=== PATIENT | female | born 1960 | race Caucasian/White ===

== ENCOUNTER 2017-08-25 12:36 | Emergency (ER) | payer MEDICAID ==
[~2017-08-25] VITALS: Ht 172.7 cm; Wt 103.9 kg
[~2017-08-25 12:36] MED LIST: ALBU6.7H INH; DIPH25CA6 PO; HYDR-569 PO; INHA1EAC68 MC; PRED20TA PO
[2017-08-25 13:04] LABS: BASOPHILS % (AUTO) 0 % (0-1); EOSINOPHILS # (AUTO) 0.2 X10'3 (0-0.9); EOSINOPHILS % (AUTO) 1.9 % (0-6); HEMATOCRIT 43.5 % (35.0-45.0); HEMOGLOBIN 14.7 g/dl (12.0-16.0); LYMPHOCYTES # (AUTO) 0.4 X10'3 (1.1-4.8); LYMPHOCYTES % (AUTO) 4.9 % (21-51); MEAN CORPUSCULAR HEMOGLOBIN 30.4 PG (27.0-31.0); MEAN CORPUSCULAR HGB CONC 33.9 % (33.0-36.5); MEAN CORPUSCULAR VOLUME 89.7 FL (78-98); MEAN PLATELET VOLUME 8.4 FL (7.4-10.4); MONOCYTES # (AUTO) 0.2 X10'3 (0-0.9); MONOCYTES % (AUTO) 2.3 % (2-12); NEUTROPHILS # (AUTO) 7.8 X10'3 (1.8-7.7); NEUTROPHILS % (AUTO) 90.9 % (42-75); PLATELET COUNT 239 X10'3 (140-440); RED BLOOD COUNT 4.85 X10'6 (4.20-5.60); RED CELL DISTRIBUTION WIDTH 12.8 % (11.5-14.5); WHITE BLOOD COUNT 8.6 X10'3 (4.5-11.0)
[2017-08-25 13:17] LABS: INR 0.9 INR; PARTIAL THROMBOPLASTIN TIME 25 SECONDS (22-32); PROTHROMBIN TIME 9.6 SECONDS (9.0-12.0)
[2017-08-25 13:19] LABS: ALANINE AMINOTRANSFERASE 46 U/L (12-78); ALBUMIN 3.9 G/DL (3.4-5.0); ALKALINE PHOSPHATASE 79 IU/L (46-116); ANION GAP 12 (8-16); ASPARTATE AMINO TRANSFERASE 23 U/L (10-37); BILIRUBIN,TOTAL 1.2 MG/DL (0.1-1.0); BLOOD UREA NITROGEN 10 MG/DL (7-18); BUN/CREATININE RATIO 10.6 (6.6-38.0); CALCIUM 9.3 MG/DL (8.5-10.1); CHLORIDE 102 MMOL/L (99-107); CREATININE 0.94 MG/DL (0.40-0.90); GLUCOSE 134 MG/DL (70-104); POTASSIUM 4.4 MMOL/L (3.5-5.1); SODIUM 139 MMOL/L (135-145); TOTAL CARBON DIOXIDE 24.8 MMOL/L (24-32); TOTAL PROTEIN 7.8 G/DL (6.4-8.2); eGFR 61 ML/MIN
[2017-08-25] MEDS ORDERED: albuterol 2.5 MG/3 ML nebule CONTNEB PRN (15:25)
[2017-08-25] MEDS ORDERED: methylPREDNISolone sod succ 125mg/2ml vial IV ONE (15:25)
[2017-08-25] MEDS ORDERED: PRED20TA PO (16:31)
[2017-08-25] MEDS ORDERED: AZIT250T PO (16:32)
[2017-08-25 17:22] VITALS: BP 124/71
== END 2017-08-25 17:24 | disposition home or self-care (01) ==
LOC: ER 12:37
DX: J44.1 Chronic obstructive pulmonary disease with (acute) exacerbation (principal); Z87.891 Personal history of nicotine dependence; Z91.013 Allergy to seafood; Z79.82 Long term (current) use of aspirin
CPT/HCPCS: 36415; 71010; 80053; 84484; 85025; 85610; 85730; 93005; 94644; 94760; 96374; 99285; J2930

== ENCOUNTER 2025-05-24 08:36 | Outpatient (CLI) | payer BC, MEDICARE ==
[~2025-05-24] VITALS: Ht 165.1 cm; Wt 107.5 kg
[~2025-05-24 08:36] MED LIST changes: -ALBU6.7H INH; +ALBU6.7H14 INH; +AZIT250T PO; +DIPH25CA52 PO; -DIPH25CA6 PO; +HYDR-4383 PO; -HYDR-569 PO; -PRED20TA PO
[2025-05-24 09:16] LABS: TOTAL HEMOGLOBIN 14.5 G/dl (12.0-16.0)
[2025-05-24 09:20] VITALS: PULSE 72; RESP 18; O2SAT 93
[2025-05-24] MEDS: albuterol 2.5 MG/3 ML nebule NEB ONE (09:57)
[2025-05-24 10:48] VITALS: RESP 18
--- NOTE | 2025-05-24 15:45 | PROCEDURE NOTE - Respiratory ---
Procedure Note-Respiratory Providers to Copies To 1: WILIAN BRIGGS MD Procedure Name: This is a complete pulmonary function study dated May 24, 2025. There was also a room air blood gas obtained from this patient on the same date. Spirometry measurements: There is reduction in both the forced vital capacity and the FEV1. The FEV1 ratio is also substantially reduced. All of the measured flow rates show significant reduction. Bronchodilator was not administered as part of the study. Lung volume measurements: The total lung capacity and the functional residual capacity measurements are normal. The residual volume is borderline increased. Lung diffusion measurement: The DLCO measurement is in the lower range of normal. It is noted that the KVO measurement is normal. The alveolar volume is borderline reduced. It is noted that the hemoglobin measurement is in the normal range. Airway resistance measurement: The airway resistance is somewhat elevated. Conclusion: This study shows significant abnormality. There is evidence for severe obstructive ventilatory defect. The patient shows borderline elevation of the residual volume which suggests some degree of air trapping within the lungs. This is a common finding in COPD. The airways resistance measurement is somewhat elevated. The lung diffusion measurement is borderline reduced. The above findings are all consistent with the patient's diagnosis of smoking-relat ed COPD. Bronchodilator therapy should continue for this patient. We have no previous studies for comparison. Close pulmonary follow-up is recommended. There was a blood gas obtained from this patient while the patient was breathing ambient air. The blood pH was borderline alkalotic at 7.46. The pCO2 is normal. There is room air hypoxemia with the room air PO2 measuring at 70 mmHg. WILIAN BRIGGS MD May 24, 2025 15:45
== END 2025-05-24 23:59 | disposition home or self-care (01) ==
LOC: RT 08:36
PROVIDERS: ATTEND Internal Medicine Pulmonary Disease
DX: J44.9 Chronic obstructive pulmonary disease, unspecified (principal)
CPT/HCPCS: 85018; 94060; 94727; 94729; 94760